=== PATIENT | male | born 1945 | race Caucasian/White ===

== ENCOUNTER 2020-08-07 20:59 | Observation (INO) ==
[2020-08-07] MEDS ORDERED: ASPIRIN 325 MG TABLET PO STA ×3 (21:00→21:28)
[2020-08-07] MEDS ORDERED: NITROGLYCERIN SL 0.4 MG TABLET SL ONE (21:25)
[2020-08-07] MEDS ORDERED: MORPHINE 4 MG/1 ML VIAL IV STA (21:28)
[2020-08-07 21:40] LABS: Basophils % 0.6 % (0.0-0.8); Eosinophils # 0.1 10*3/uL (0.0-0.87); Eosinophils % 2.1 % (0.00-10.9); Hematocrit 40.3 VOL% (42.0-52.0); Hemoglobin 13.8 GM/DL (14.0-18.0); Immature Granulocytes % 0.4 %; Immature Granulocytes Absolute 0.03 #; Lymphocytes # 1.2 10*3/uL (1.4-4.0); Lymphocytes % 17.2 % (21.2-54.2); Mean Corpuscular HGB Conc 34.2 GM/DL (32-36); Mean Corpuscular Volume 90.6 FL (87-102); Mean Platelet Volume 10.2 FL (9.6-12.0); Monocytes % 6.6 % (1.7-12.7); Neutrophils % 73.1 % (38.7-73.9); Platelet Count 115 T/CUMM (130-400); Red Blood Count 4.45 MC/CUMM (3.8-5.5); Red Cell Distribution Width 11.7 % (9.3-17.3); White Blood Count 6.8 T/CUMM (4-12)
[2020-08-07 22:05] LABS: Albumin 3.5 G/DL (3.4-5.0); Bilirubin,Total 0.8 MG/DL (0.2-1.0); Osmolality,Calculated 277.7 MOS/KG (273-304); Total Protein 6.5 G/DL (6.4-8.3)
[2020-08-07 22:26] LABS: Hypochromasia Slight; Platelet Estimate Adequate
[2020-08-08] MEDS ORDERED: ACETAMINOPHEN 325 MG TABLET PO PRN (01:34)
[2020-08-08] MEDS ORDERED: GLUCAGON 1 MG VIAL IM PRN (01:34)
[2020-08-08] MEDS ORDERED: ONDANSETRON 4 MG/2 ML VIAL IV PRN (01:34)
[2020-08-08] MEDS ORDERED: DEXTROSE 50% 25 GM/50 ML VIAL IV PRN (01:34)
[2020-08-08] MEDS ORDERED: MORPHINE 4 MG/1 ML VIAL IV PRN (01:34)
[2020-08-08] MEDS ORDERED: ENOXAPARIN 40 MG/0.4 ML SYRINGE SUBCUT SCH (02:00)
[2020-08-08 02:07] LABS: Risk Ratio 2.73; VLDL CHOLESTEROL 23.6 MG/DL
[2020-08-08] MEDS ORDERED: NITROGLYCERIN SL 0.4 MG TABLET SL PRN (02:26)
[2020-08-08] MEDS: INSULIN REGULAR 100 UNIT/ML SUBCUT SCH ×2 (08:44→13:10)
[2020-08-08] MEDS ORDERED: PANTOPRAZOLE 40 MG TABLET PO SCH (09:00)
[2020-08-08] MEDS ORDERED: carvediloL 25 MG TABLET PO SCH (11:30)
[2020-08-08] MEDS ORDERED: CLOPIDOGREL 75 MG TABLET PO SCH (12:00)
[2020-08-08 16:22] VITALS: BP 120/70
[2020-08-08] MEDS ORDERED: ATORVASTATIN 80 MG TABLET PO SCH (21:00)
[2020-08-09] MEDS ORDERED: FUROSEMIDE 20 MG TABLET PO SCH (09:00)
[2020-08-09] MEDS ORDERED: POTASSIUM CHLORIDE 10 MEQ TABLET PO SCH (09:00)
[2020-08-09] MEDS ORDERED: ASPIRIN EC 81 MG TABLET PO SCH (09:00)
[2020-08-09] MEDS ORDERED: LOSARTAN 25 MG TABLET PO SCH (09:00)
[2020-08-09] MEDS ORDERED: LEVOTHYROXINE 150 MCG TABLET PO SCH (09:00)
[2020-08-09] MEDS ORDERED: MULTIVITAMIN (OCUVITE) TABLET PO SCH (09:00)
== END 2020-08-08 17:35 | disposition home or self-care (01) ==
LOC: N.EDINP 20:59 → N.ED 20:59 → N.TELES 08-08 03:25
PROVIDERS: ADMIT Hospitalist; ATTEND Hospitalist